=== PATIENT | female | born 1955 | race Caucasian/White ===

== ENCOUNTER → 2017-05-29 | Outpatient (CLI) | payer MEDICARE, MEDICAID ==
[~2017-05-29] MED LIST: ACLI400A2 INH; ALBU0.63 NEB; ALBU18HF INH; ALBUTEROL 0.083% NEB INH; ASPI-496 PO; BECL8.7A6 INH; BUDE10.2 INH; CITA10TA4 PO; DIAZ5TAB PO; DOXY100T PO; DULO30CA2 PO; FLUT1AER INH; FURO20TA3 PO; GABA-827 PO; GUAI600T80 PO; HYDR-3245 PO; KETO10TA PO; LACT1CAP35 PO; LEVO500T47 PO; MAGNESIUM PO; METH4TAB2 PO; METH750T87 PO; MULT-658 PO; NAPR-850 PO; NICO1PAT13 TD; NICO1PAT16 TD; OMEP40CA6 PO; OXYC-302 PO; OXYC1TAB7 PO; PRED-402 PO; PRED10TA PO; SENN1TAB67 PO; TEMA30CA PO; TERB250T3 PO
== END | disposition home or self-care (01) ==
LOC: CFH 14:15
PROVIDERS: ATTEND Nurse Practitioner
DX: J84.10 Pulmonary fibrosis, unspecified (principal); J98.11 Atelectasis; R91.1 Solitary pulmonary nodule
CPT/HCPCS: 71250

== ENCOUNTER → 2018-03-13 | Outpatient (CLI) | payer OTHER, MEDICAID ==
[~2018-03-13] MED LIST changes: +NICO-486 TD; +NICO-487 TD; -NICO1PAT13 TD; -NICO1PAT16 TD
== END | disposition home or self-care (01) ==
LOC: CFH 10:19
PROVIDERS: ATTEND Nurse Practitioner
DX: Z12.31 Encounter for screening mammogram for malignant neoplasm of breast (principal)
CPT/HCPCS: 77067

== ENCOUNTER 2018-07-24 08:29 | Day surgery (SDC) | payer OTHER, MEDICAID ==
[2018-07-21 11:51] VITALS: BP 112/80
[2018-07-21 12:51] LABS: CHLORIDE 101 mmol/L (98-107)
[2018-07-21 13:07] LABS: ALANINE AMINOTRANSFERASE 19 U/L (12-78); ALBUMIN 3.9 g/dL (3.4-5.0); ALKALINE PHOSPHATASE 132 U/L (45-117); ANION GAP 6 mmol/L (5-15); BILIRUBIN,TOTAL 0.4 mg/dL (0.2-1.0); CALCIUM 9.2 mg/dL (8.5-10.1); CREATININE 0.69 mg/dL (0.55-1.02); TOTAL PROTEIN 7.3 g/dL (6.4-8.2)
[2018-07-21 15:16] LABS: BASOPHILS # (AUTO) 0.07 x10^3/uL (0-0.1); BASOPHILS % (AUTO) 1 % (0-1); EOSINOPHILS # (AUTO) 0.09 x10^3/uL (0-0.4); EOSINOPHILS % (AUTO) 2 % (1-7); LYMPHOCYTES # (AUTO) 1.82 x10^3/uL (1-3.4); LYMPHOCYTES % (AUTO) 30 % (22-44); MD NO; MEAN CORPUSCULAR HEMOGLOBIN 31.4 pg (27.0-34.8); MEAN CORPUSCULAR HGB CONC 33.6 g/dL (32.4-35.8); MEAN CORPUSCULAR VOLUME 93.5 fL (80-100); MEAN PLATELET VOLUME 9.8 fL (7.4-10.4); MONOCYTES # (AUTO) 0.45 x10^3/uL (0.2-0.8); MONOCYTES % (AUTO) 7 % (2-9); NEUTROPHILS # (AUTO) 3.59 x10^3/uL (1.8-6.8); NEUTROPHILS % (AUTO) 60 % (42-75); PLATELET COUNT 212 x10^3/uL (130-400); RED BLOOD COUNT 4.25 x10^6/uL (3.82-5.3); RED CELL DISTRIBUTION WIDTH 13.1 % (9.6-15.2)
[~2018-07-24] VITALS: Ht 157.5 cm; Wt 92.7 kg
[~2018-07-24 08:29] MED LIST changes: +ALPR-475 PO; +DOCU250C62 PO; +DOXY100T10 PO; +FLUT1BLS3 IH; +FLUT9.9S NS; +MELO15TA24 PO; +OXYC-432 PO; +PRED20TA PO; +VARE1TAB21 PO; +VENL150C6 PO
[2018-07-24] MEDS ORDERED: LACTATED RINGERS 1,000 ML IV SCH (08:59)
[2018-07-24 09:00] VITALS: BP 112/80
[2018-07-24] MEDS ORDERED: PIPERACILLIN/TAZO/PMX 3.375GM 50 ML IV ONE (09:00)
[2018-07-24] MEDS ORDERED: PROPOFOL 10 MG/ML, 20ML ONE (11:01)
[2018-07-24] MEDS ORDERED: GLYCOPYRROLATE 0.4 MG/2 ML, 2ML ONE ×2 (11:28→12:01)
[2018-07-24] MEDS ORDERED: NEOSTIGMINE 1 MG/ML, 10ML ONE (11:28)
[2018-07-24] MEDS ORDERED: ROCURONIUM 10MG/ML,5ML ONE (11:28)
[2018-07-24] MEDS ORDERED: FENTANYL PF 100 MCG/2ML IV PRN (11:30)
[2018-07-24] MEDS ORDERED: OXYcodone 5 MG/5 ML ORAL.SOL UDC PO PRN (11:30)
[2018-07-24] MEDS ORDERED: ALBUTEROL/IPRATROPIUM 2.5MG/0.5MG, 3 ML NPPB PRN (11:30)
[2018-07-24] MEDS ORDERED: ALBUTEROL SULFATE 2.5 MG/3 ML NPPB PRN (11:30)
[2018-07-24] MEDS ORDERED: ONDANSETRON 2MG/ML, 2ML ONE (11:48)
[2018-07-24] MEDS ORDERED: DEXAMETHASONE 4 MG/ML, 1ML ONE ×2 (11:48)
[2018-07-24] MEDS ORDERED: PHENYLEPHRINE 10 MG/ML ONE (15:23)
== END 2018-07-24 14:20 | disposition home or self-care (01) ==
LOC: OUT 08:29
PROVIDERS: ATTEND Internal Medicine Gastroenterology
DX: K86.9 Disease of pancreas, unspecified (principal); K31.89 Other diseases of stomach and duodenum; K21.9 Gastro-esophageal reflux disease without esophagitis; J44.9 Chronic obstructive pulmonary disease, unspecified; F41.9 Anxiety disorder, unspecified; F32.9 Major depressive disorder, single episode, unspecified; F17.210 Nicotine dependence, cigarettes, uncomplicated; Z99.81 Dependence on supplemental oxygen; G47.33 Obstructive sleep apnea (adult) (pediatric); Z88.1 Allergy status to other antibiotic agents; Z88.8 Allergy status to other drugs, medicaments and biological substances; Z79.82 Long term (current) use of aspirin; Z79.899 Other long term (current) drug therapy; Z91.013 Allergy to seafood; Z87.39 Personal history of other diseases of the musculoskeletal system and connective tissue; Z98.890 Other specified postprocedural states; Z90.49 Acquired absence of other specified parts of digestive tract
CPT/HCPCS: 36415; 43238; 43248; 80053; 85025; 88172; 88173; 88305; 93005; J1100; J2370; J2405; J2543; J2704; J2710; J7120; 88341; 88342

== ENCOUNTER → 2018-08-04 | Outpatient (CLI) | payer OTHER, MEDICAID | END | disposition home or self-care (01) | LOC: PETCFH 13:39 | PROVIDERS: ATTEND Nurse Practitioner Family | DX: R91.8 Other nonspecific abnormal finding of lung field (principal) | CPT/HCPCS: 78815; A9552 ==

== ENCOUNTER → 2018-08-05 | Outpatient (CLI) | payer OTHER, MEDICAID ==
[~2018-08-05] MED LIST changes: +FENTANYL PF 100 MCG/2ML ONE; +GADOBUTROL 10 MMOL/10 ML PFS ONE; +MIDAZOLAM 1 MG/ML, 5ML ONE
== END | disposition home or self-care (01) ==
LOC: RAD 10:08
PROVIDERS: ATTEND Nurse Practitioner Family
DX: I67.82 Cerebral ischemia (principal); C34.90 Malignant neoplasm of unspecified part of unspecified bronchus or lung
CPT/HCPCS: 70553; 99156; 99157; A9585; J2250; J3010

== ENCOUNTER 2018-09-01 08:30 | Day surgery (SDC) | payer OTHER, MEDICAID ==
[~2018-09-01] VITALS: Ht 154.9 cm; Wt 94.0 kg
[~2018-09-01 08:30] MED LIST changes: -FENTANYL PF 100 MCG/2ML ONE; -GADOBUTROL 10 MMOL/10 ML PFS ONE; -MIDAZOLAM 1 MG/ML, 5ML ONE
[2018-09-01] MEDS ORDERED: CEFAZOLIN PMX 1GM/50ML 50 ML IV ONE (09:00)
[2018-09-01] MEDS ORDERED: SODIUM CHLORIDE 0.9% 1,000 ML IV SCH (09:00)
[2018-09-01 09:08] VITALS: BP 120/69
[2018-09-01] MEDS ORDERED: LIDOCAINE-MPF 1%, 5ML ONE (10:39)
[2018-09-01] MEDS ORDERED: FENTANYL PF 100 MCG/2ML ONE (10:49)
[2018-09-01] MEDS ORDERED: FLUMAZENIL 0.1 MG/1 ML, 5ML ONE (10:49)
[2018-09-01] MEDS ORDERED: MIDAZOLAM 1 MG/ML, 5ML ONE ×2 (10:49)
[2018-09-01] MEDS ORDERED: NALOXONE 1 MG/ML, 2ML ONE (10:49)
== END 2018-09-01 13:05 | disposition home or self-care (01) ==
LOC: OUT 08:30
PROVIDERS: ATTEND Internal Medicine Hematology & Oncology
DX: Z45.2 Encounter for adjustment and management of vascular access device (principal); C34.90 Malignant neoplasm of unspecified part of unspecified bronchus or lung; F41.9 Anxiety disorder, unspecified; F32.9 Major depressive disorder, single episode, unspecified; F44.9 Dissociative and conversion disorder, unspecified; Z88.8 Allergy status to other drugs, medicaments and biological substances; Z88.1 Allergy status to other antibiotic agents; Z91.013 Allergy to seafood; Z79.899 Other long term (current) drug therapy; Z87.891 Personal history of nicotine dependence
CPT/HCPCS: 36561; 76937; 77001; 99156; 99157; C1788; J0690; J1642; J2250; J3010; J2310

== ENCOUNTER 2018-10-16 07:16 | Day surgery (SDC) | payer OTHER, MEDICAID ==
[~2018-10-16] VITALS: Ht 157.5 cm; Wt 93.2 kg
[2018-10-16 08:26] VITALS: BP 107/75
[2018-10-16] MEDS ORDERED: METOPROLOL 1 MG/ML, 5ML IV PRN (08:30)
[2018-10-16] MEDS ORDERED: ALBUTEROL/IPRATROPIUM 2.5MG/0.5MG, 3 ML NPPB PRN (08:30)
[2018-10-16] MEDS ORDERED: LABETALOL 5MG/ML, 20ML IV PRN (08:30)
[2018-10-16] MEDS ORDERED: hydrALAzine 20 MG/ML, 1ML IV PRN (08:30)
[2018-10-16] MEDS ORDERED: PLEASE ENTER HEIGHT AND WEIGHT MC SCH ×2 (08:30)
[2018-10-16] MEDS ORDERED: ONDANSETRON 2MG/ML, 2ML IV PRN (08:30)
[2018-10-16] MEDS ORDERED: FENTANYL PF 100 MCG/2ML IV PRN (08:30)
[2018-10-16] MEDS ORDERED: LACTATED RINGERS 1,000 ML IV SCH (08:36)
[2018-10-16] MEDS ORDERED: PROPOFOL 10 MG/ML, 20ML ONE (09:11)
== END 2018-10-16 11:25 | disposition home or self-care (01) ==
LOC: OUT 07:16
PROVIDERS: ATTEND Internal Medicine Gastroenterology
DX: K57.30 Diverticulosis of large intestine without perforation or abscess without bleeding (principal); K64.0 First degree hemorrhoids; J44.9 Chronic obstructive pulmonary disease, unspecified; M19.90 Unspecified osteoarthritis, unspecified site; G47.33 Obstructive sleep apnea (adult) (pediatric); K21.9 Gastro-esophageal reflux disease without esophagitis; Z79.899 Other long term (current) drug therapy; Z85.118 Personal history of other malignant neoplasm of bronchus and lung; Z90.49 Acquired absence of other specified parts of digestive tract
CPT/HCPCS: 45378; J2704; J7120

== ENCOUNTER 2018-10-31 07:18 | Outpatient (CLI) | payer MEDICARE, MEDICAID | END 2018-10-31 23:59 | disposition home or self-care (01) | LOC: ROC 07:18 → EDSTATUS 09-15 14:57 | PROVIDERS: ATTEND Radiology Radiation Oncology | DX: Z02.9 Encounter for administrative examinations, unspecified (principal) ==

== ENCOUNTER → 2018-11-06 | Outpatient (CLI) | payer MEDICARE, MEDICAID | END | disposition home or self-care (01) | LOC: ROC 08:19 | PROVIDERS: ATTEND Nurse Practitioner | DX: C34.12 Malignant neoplasm of upper lobe, left bronchus or lung (principal); J44.9 Chronic obstructive pulmonary disease, unspecified | CPT/HCPCS: 99212; G0463 ==

== ENCOUNTER → 2018-12-17 | Outpatient (CLI) | payer MEDICARE, MEDICAID ==
[~2018-12-17] MED LIST changes: +OMNIPAQUE 350 MG/ML, 100ML BOTTLE ONE
== END | disposition home or self-care (01) ==
LOC: RAD 10:28
PROVIDERS: ATTEND Internal Medicine Hematology & Oncology
DX: K76.89 Other specified diseases of liver (principal); N28.1 Cyst of kidney, acquired; C34.12 Malignant neoplasm of upper lobe, left bronchus or lung; Z87.891 Personal history of nicotine dependence
CPT/HCPCS: 71260; 74160; J1642; Q9967

== ENCOUNTER 2019-01-12 09:23 | Outpatient (CLI) | payer MEDICARE, MEDICAID ==
[~2019-01-12 09:23] MED LIST changes: -OMNIPAQUE 350 MG/ML, 100ML BOTTLE ONE
== END 2019-01-12 23:59 | disposition home or self-care (01) ==
LOC: ROC 09:23
PROVIDERS: ATTEND Radiology Radiation Oncology
DX: C34.12 Malignant neoplasm of upper lobe, left bronchus or lung (principal); Z79.899 Other long term (current) drug therapy
CPT/HCPCS: 99212; G0463

== ENCOUNTER → 2019-03-10 | Outpatient (CLI) | payer MEDICARE, MEDICAID ==
[~2019-03-10] MED LIST changes: +PRIM50TA34 PO
== END | disposition home or self-care (01) ==
LOC: CFH 12:24
PROVIDERS: ATTEND Nurse Practitioner
DX: M50.30 Other cervical disc degeneration, unspecified cervical region (principal); M48.02 Spinal stenosis, cervical region; M46.02 Spinal enthesopathy, cervical region; G95.89 Other specified diseases of spinal cord; M51.34 Other intervertebral disc degeneration, thoracic region; M48.04 Spinal stenosis, thoracic region; M41.84 Other forms of scoliosis, thoracic region; M46.04 Spinal enthesopathy, thoracic region
CPT/HCPCS: 72040; 72072

== ENCOUNTER 2019-03-18 15:00 | Outpatient (CLI) | payer MEDICARE, MEDICAID | END 2019-03-18 23:59 | disposition home or self-care (01) | LOC: CFH 15:00 | PROVIDERS: ATTEND Nurse Practitioner | DX: Z12.31 Encounter for screening mammogram for malignant neoplasm of breast (principal) | CPT/HCPCS: 77067 ==

== ENCOUNTER 2019-04-30 12:03 | Outpatient (CLI) | payer MEDICARE, MEDICAID | END 2019-04-30 23:59 | disposition home or self-care (01) | LOC: RAD 12:03 | PROVIDERS: ATTEND Internal Medicine Hematology & Oncology | DX: S22.049A Unspecified fracture of fourth thoracic vertebra, initial encounter for closed fracture (principal); C34.12 Malignant neoplasm of upper lobe, left bronchus or lung; R91.1 Solitary pulmonary nodule; J44.9 Chronic obstructive pulmonary disease, unspecified; X58.XXXA Exposure to other specified factors, initial encounter; Y93.89 Activity, other specified; Y92.89 Other specified places as the place of occurrence of the external cause; Y99.8 Other external cause status | CPT/HCPCS: 71260; J1642; Q9967 ==

== ENCOUNTER 2019-05-04 08:55 | Outpatient (CLI) | payer MEDICARE, MEDICAID | END 2019-05-04 23:59 | disposition home or self-care (01) | LOC: ROC 08:55 | PROVIDERS: ATTEND Radiology Radiation Oncology | DX: Z08 Encounter for follow-up examination after completed treatment for malignant neoplasm (principal); Z79.899 Other long term (current) drug therapy; Z79.891 Long term (current) use of opiate analgesic; Z88.2 Allergy status to sulfonamides; Z91.041 Radiographic dye allergy status | CPT/HCPCS: 99212; G0463 ==

== ENCOUNTER → 2019-07-15 | Outpatient (CLI) | payer MEDICARE, MEDICAID ==
[~2019-07-15] MED LIST changes: -ACLI400A2 INH; +ACLI400A3 INH; -ALPR-475 PO; +ALPR0.5T7 PO; -DOXY100T10 PO; +DOXY100T23 PO; +OMEP40CA42 PO; -OMEP40CA6 PO; +OXYC-307 PO
== END | disposition home or self-care (01) ==
LOC: RAD 08:31 → EDSTATUS 09:00
PROVIDERS: ATTEND Nurse Practitioner
DX: Z02.9 Encounter for administrative examinations, unspecified (principal)

== ENCOUNTER → 2019-07-16 | Outpatient (CLI) | payer MEDICARE, MEDICAID ==
[~2019-07-16] MED LIST changes: +FENTANYL PF 100 MCG/2ML ONE; +MIDAZOLAM 1 MG/ML, 5ML ONE
== END | disposition home or self-care (01) ==
LOC: RAD 14:00
PROVIDERS: ATTEND Nurse Practitioner
DX: M48.54XA Collapsed vertebra, not elsewhere classified, thoracic region, initial encounter for fracture (principal); J44.9 Chronic obstructive pulmonary disease, unspecified; Z87.891 Personal history of nicotine dependence; Z88.2 Allergy status to sulfonamides; Z91.041 Radiographic dye allergy status; Z91.013 Allergy to seafood; Z99.81 Dependence on supplemental oxygen
CPT/HCPCS: 72146; 99156; 99157; J2250; J3010

== ENCOUNTER 2019-08-04 15:25 | Emergency (ER) | payer MEDICARE, MEDICAID ==
[~2019-08-04] VITALS: Ht 157.5 cm; Wt 79.5 kg
[~2019-08-04 15:25] MED LIST changes: -FENTANYL PF 100 MCG/2ML ONE; -MIDAZOLAM 1 MG/ML, 5ML ONE
--- NOTE | 2019-08-04 15:42 | NUR ---
[facility] / +SOB. PT S/P CHEMO AND RADIATION FOR LUNG CA. "I'M NOW CANCER FREE" PT RECIEVES IMMUNOTHERAPY EVERY 2 WEEKS. PER TNT LINE SUPERVISOREDGE BANDER HAND CAN CAUSE PNUEMONITIS. PT CHANGED INTO GOWN AND ALL MONITORS PLACED. VSS, LUNG SOUNDS GREATLY DIMINISHED POSTERIOR T/O. CALL LIGHT W/I REACH. AWAITING ER PROVIDER EVALUATION
[2019-08-04] MEDS ORDERED: ALBUTEROL/IPRATROPIUM 2.5MG/0.5MG, 3 ML ONE (16:23)
[2019-08-04] MEDS ORDERED: ALBUTEROL/IPRATROPIUM 2.5MG/0.5MG, 3 ML NPPB ONE (16:30)
[2019-08-04 16:48] LABS: BASOPHILS # (AUTO) 0.04 x10^3/uL (0-0.1); BASOPHILS % (AUTO) 1 % (0-1); EOSINOPHILS # (AUTO) 0.05 x10^3/uL (0-0.4); EOSINOPHILS % (AUTO) 1 % (1-7); LYMPHOCYTES # (AUTO) 0.71 x10^3/uL (1-3.4); LYMPHOCYTES % (AUTO) 14 % (22-44); MD NO; MEAN CORPUSCULAR HEMOGLOBIN 32.6 pg (27.0-34.8); MEAN CORPUSCULAR HGB CONC 33.8 g/dL (32.4-35.8); MEAN CORPUSCULAR VOLUME 96.4 fL (80-100); MEAN PLATELET VOLUME 8.2 fL (7.4-10.4); MONOCYTES # (AUTO) 0.34 x10^3/uL (0.2-0.8); MONOCYTES % (AUTO) 7 % (2-9); NEUTROPHILS # (AUTO) 3.78 x10^3/uL (1.8-6.8); NEUTROPHILS % (AUTO) 77 % (42-75); PLATELET COUNT 178 x10^3/uL (130-400); RED BLOOD COUNT 3.75 x10^6/uL (3.82-5.3); RED CELL DISTRIBUTION WIDTH 13.5 % (9.6-15.2)
[2019-08-04 16:56] LABS: ALBUMIN 3.3 g/dL (3.4-5.0); ANION GAP 3 mmol/L (5-15); CHLORIDE 93 mmol/L (98-107); CREATININE 0.38 mg/dL (0.55-1.02)
--- NOTE | 2019-08-04 18:35 | NUR ---
RT PAGE TO DISCUSS PT ABG AND PLAN FOR ADMIT. BIPAP VS HIGH FLOW
[2019-08-04 19:43] VITALS: BP 121/72
== END 2019-08-04 19:46 | disposition home or self-care (01) ==
LOC: ED 19:15
DX: J43.9 Emphysema, unspecified (principal); I10 Essential (primary) hypertension; Z90.49 Acquired absence of other specified parts of digestive tract; F17.200 Nicotine dependence, unspecified, uncomplicated; Z85.118 Personal history of other malignant neoplasm of bronchus and lung
CPT/HCPCS: 36415; 36600; 71046; 80048; 82040; 82803; 85025; 94640; 99284; J7620

== ENCOUNTER 2019-12-03 15:54 | Emergency (ER) | payer MEDICARE, MEDICAID ==
[~2019-12-03] VITALS: Ht 157.5 cm; Wt 70.4 kg
[~2019-12-03 15:54] MED LIST changes: +LEVO750T26 PO
--- NOTE | 2019-12-03 16:02 | NUR ---
PT TO ROOM 9 PER NITIN. PT WAS AT HOME, AND NOTICED HER PULSE OX SHOWED HER HR AT 120. PT BECAME ANXIOUS, TOOK A XANAX AND IT WAS STILL HIGH, SO SHE TOOK AN OXYCODONE 10MG AND CALLED 911. PT HAS HX OF COPD, WEARS OXYGEN AT HOME ANYWHERE FROM 2-4L NC. PT ALSO CONTINUES TO SMOKE 1/2 PACK PER DAY. PT HAS HISTORY OF CHRONIC BACK PAIN THAT USES OXYCODONE 10MG EVERY 6 HOURS. PT HERE DUE TO BEING ANXIOUS.
--- NOTE | 2019-12-03 16:52 | NUR ---
IN TO ASSESS PATIENT. PT VERY ANXIOUS IN ROOM. KEEPS HOLLERING FOR HELP, BUT WHEN YOU GO TO ROOM, SHE JUST WANTS HER BLANKET ADJUSTED OR HER CHANNEL CHANGED. RN INFORMS PATIENT THAT SHE PERFORMS THESE TASKS AT HOME, SHE CAN PERFORM THEM HERE. RN ENSURES BLANKET IS ON APPROPRIATELY, CALL LIGHT IS WITHIN REACH AND HOB IS ELEVATED TO PATIENT REQUEST.
--- NOTE | 2019-12-03 16:54 | NUR ---
XRAY AT BEDSIDE. EKG PERFORMED UPON ARRIVAL
[2019-12-03] MEDS ORDERED: LORazepam 1MG TABLET PO ONE (17:00)
[2019-12-03 17:03] LABS: BASOPHILS # (AUTO) 0.02 x10^3/uL (0-0.1); BASOPHILS % (AUTO) 1 % (0-1); EOSINOPHILS # (AUTO) 0.15 x10^3/uL (0-0.4); EOSINOPHILS % (AUTO) 4 % (1-7); LYMPHOCYTES # (AUTO) 0.83 x10^3/uL (1-3.4); LYMPHOCYTES % (AUTO) 19 % (22-44); MD NO; MEAN CORPUSCULAR HEMOGLOBIN 31.4 pg (27.0-34.8); MEAN CORPUSCULAR VOLUME 95.2 fL (80-100); MEAN PLATELET VOLUME 8.5 fL (7.4-10.4); MONOCYTES # (AUTO) 0.34 x10^3/uL (0.2-0.8); MONOCYTES % (AUTO) 8 % (2-9); NEUTROPHILS # (AUTO) 2.96 x10^3/uL (1.8-6.8); NEUTROPHILS % (AUTO) 69 % (42-75); PLATELET COUNT 217 x10^3/uL (130-400); RED BLOOD COUNT 3.88 x10^6/uL (3.82-5.3); RED CELL DISTRIBUTION WIDTH 15.7 % (9.6-15.2)
[2019-12-03 17:12] LABS: ALBUMIN 3.5 g/dL (3.4-5.0); ANION GAP 5 mmol/L (5-15); CALCIUM 9.8 mg/dL (8.5-10.1); CHLORIDE 97 mmol/L (98-107); CREATININE 0.32 mg/dL (0.55-1.02)
[2019-12-03 17:15] LABS: TROPONIN I < 0.015 ng/mL (0.000-0.045)
[2019-12-03] MEDS ORDERED: LORazepam 1MG TABLET ONE (17:22)
--- NOTE | 2019-12-03 17:35 | NUR ---
PT UP TO BSC, PASSES GAS. PT C/O PAIN. RN INFORMS PATIENT THAT ORDER CAN BE PLACED FOR MOTRIN, PT STATES "THAT WON'T DO ANYTHING", RN INFORMED PATIENT THAT SHE JUST HAD 2MG ATIVAN AND TOOK HER OXYCODONE AT 2PM AT HOME. PT AGREED, BUT C/O CHRONIC BACK PAIN. WILL CONTINUE TO MONITOR.
--- NOTE | 2019-12-03 18:40 | NUR ---
PT RESTING IN BED. HR 100.
--- NOTE | 2019-12-03 19:15 | NUR ---
PT ATTEMPTING TO GET TRANSPORTATION HOME, AND HAVE SOMEONE BRING HER OXYGEN FOR TRANSPORT.
--- NOTE | 2019-12-03 20:14 | NUR ---
PT YELLING IN HALLWAY FOR HELP. PT NEEDS ASSISTANCE TO GET TO COMMODE TO PASS GAS. RN INFORMS PATIENT THAT SHE NEEDS TO DO THIS HERSELF SHE LIVES ALONE. IF SHE CAN NOT SHE MAY NEED TO GO TO ASSISTED LIVING.
--- NOTE | 2019-12-03 20:26 | NUR ---
PT ASKING TO GO TO WAITING ROOM ON HOSPITAL OXYGEN TANK UNTIL HER RIDE COMES. RN INQUIRES TO HOW LONG IT WILL BE BEFORE HER RIDE ARRIVES. PT STATES "ONLY 5-10MINUTES". RN INFORMS PATIENT THAT SHE WILL NEED TO WAIT BACK HERE UNTIL SOMEONE ARRIVES WITH HER OXYGEN SET UP. PT INFORMS RN THAT THEY HAVE LET HER GO HOME WITH THE HOSPITAL TANKS BEFORE, AND SHE HAS ONE ON HER PORCH. RN INFORMS PATIENT THAT SHE NEEDS TO HAVE SOMEONE BRING HER SET UP. PATIENT IS TALKING TO SOMEONE ON HER PHONE USING THE SPEAKER SET UP VERY LOUDLY, AND SHE IS TRYING TO GET SOMEONE TO LET HER OUT FRONT SO SHE CAN GO OUTSIDE AND SMOKE. RN INFORMS PATIENT THAT SHE MOST DEFINATELY CAN NOT GO OUTSIDE TO SMOKE, SO SHE MUST STAY IN THE ROOM UNTIL HER RIDE IS HERE.
--- NOTE | 2019-12-03 20:49 | NUR ---
PT INFORMS RN THAT RIDE IS COMING. RN ASKS PATIENT TO LET STAFF KNOW WHEN RIDE ARRIVES.
--- NOTE | 2019-12-03 21:36 | NUR ---
EX IN ER WAITING ROOM WITH O2 TANK. RN RETREIVES TANK AND GETS PATIENT READY FOR DISCHARGE. RN WHEELS PATIENT OUT OF ED TO TRUCK IN ROUND ABOUT. PT STABLE UPON DISCHARGE.
[2019-12-03 21:39] VITALS: BP 122/78
== END 2019-12-03 21:42 | disposition home or self-care (01) ==
LOC: ED 19:00
DX: F41.1 Generalized anxiety disorder (principal); R00.0 Tachycardia, unspecified; I10 Essential (primary) hypertension; J44.9 Chronic obstructive pulmonary disease, unspecified
CPT/HCPCS: 36415; 71045; 80048; 82040; 84484; 85025; 93005; 99285

== ENCOUNTER 2019-12-17 14:39 | Emergency (ER) | payer MEDICARE, MEDICAID ==
[~2019-12-17] VITALS: Ht 157.5 cm; Wt 69.0 kg
[2019-12-17] MEDS ORDERED: OXYcodone/APAP 5/325MG TABLET ONE (14:54)
[2019-12-17] MEDS ORDERED: SODIUM CHLORIDE FLUSH 10ML SYR IVF ONE (15:00)
[2019-12-17] MEDS ORDERED: OXYcodone/APAP 5/325MG TABLET PO ONE (15:00)
[2019-12-17] MEDS ORDERED: PLEASE ENTER HEIGHT AND WEIGHT MC SCH (15:00)
[2019-12-17] MEDS ORDERED: MAGNESIUM SULFATE PMX 2GM/50ML 50 ML IVPB ONE (15:00)
--- NOTE | 2019-12-17 15:02 | NUR ---
PT STATES SHE FEELS MUCH BETTER. HAD TAKEN 2 PUFFS OF HOME RX INAHLER. WAS GIVEN 1 ALBUTERAL AND 1 DUONEB BREATHING TREATMENT PRIOR TO ARRIVAL. ALSO GIVEN 125MG OF SOLUMEDROL. PT MEDICATED PER NOV. RIGHTS VERIFIED PRIOR. 3P'S ADDRESSED. POC DISCUSSED.
[2019-12-17 15:11] LABS: BASOPHILS # (AUTO) 0.04 x10^3/uL (0-0.1); BASOPHILS % (AUTO) 1 % (0-1); EOSINOPHILS # (AUTO) 0.08 x10^3/uL (0-0.4); EOSINOPHILS % (AUTO) 1 % (1-7); LYMPHOCYTES # (AUTO) 1.19 x10^3/uL (1-3.4); LYMPHOCYTES % (AUTO) 18 % (22-44); MD NO; MEAN CORPUSCULAR HEMOGLOBIN 31.4 pg (27.0-34.8); MEAN CORPUSCULAR HGB CONC 32.3 g/dL (32.4-35.8); MEAN CORPUSCULAR VOLUME 97.4 fL (80-100); MONOCYTES # (AUTO) 0.45 x10^3/uL (0.2-0.8); MONOCYTES % (AUTO) 7 % (2-9); NEUTROPHILS # (AUTO) 4.85 x10^3/uL (1.8-6.8); NEUTROPHILS % (AUTO) 74 % (42-75); PLATELET COUNT 209 x10^3/uL (130-400); RED BLOOD COUNT 4.15 x10^6/uL (3.82-5.3); RED CELL DISTRIBUTION WIDTH 15.4 % (9.6-15.2)
[2019-12-17 15:23] LABS: ALBUMIN 3.4 g/dL (3.4-5.0); ANION GAP 4 mmol/L (5-15); CALCIUM 9.3 mg/dL (8.5-10.1); CHLORIDE 94 mmol/L (98-107)
[2019-12-17 15:27] LABS: TROPONIN I < 0.015 ng/mL (0.000-0.045)
--- NOTE | 2019-12-17 15:27 | NUR ---
PT RESTING COMFORTABELY. IV INFUSION STARTED PER NOV. RIGHTS VERIFIED PRIOR.
--- NOTE | 2019-12-17 16:25 | NUR ---
DISCUSSED POC WITH PATIENT. TO BE D/C. SHE WILL ATTEMPT TO GET RIDE.
[2019-12-17 16:45] VITALS: BP 101/75
--- NOTE | 2019-12-17 17:02 | NUR ---
PATIENT GIVEN D/C PAPERWORK. PT VERBALIZED UNDERSTANDING. PT TAKEN OUT BY W/C.
== END 2019-12-17 17:04 | disposition home or self-care (01) ==
LOC: ED 15:17
DX: J44.1 Chronic obstructive pulmonary disease with (acute) exacerbation (principal); I10 Essential (primary) hypertension; F17.200 Nicotine dependence, unspecified, uncomplicated; Z04.9 Encounter for examination and observation for unspecified reason
CPT/HCPCS: 36415; 71045; 80048; 82040; 83605; 83880; 84484; 85025; 87040; 93005; 96361; 96365; 99285; J3475

== ENCOUNTER 2019-12-24 12:03 | Emergency (ER) | payer MEDICARE, MEDICAID ==
[~2019-12-24] VITALS: Ht 157.5 cm; Wt 70.0 kg
[2019-12-24 12:18] VITALS: BP 117/77
--- NOTE | 2019-12-24 12:37 | NUR ---
PT BEING DISCHARGED HOME IN A STABLE CONDITION. RN INFORMED THROUGHPUT THAT [employer] IS GOING TO BE NEEDED TO RETURN PT HOME. THROUGHPUT RN TO SET UP RIDE. DC INSTRUCTIONS WERE DISCUSSED WITH PT. PT VERBALIZED UNDERSTANDING. RN HELPED PT GET DRESSED. AWAITING TIME FOR TRANSPORT.
== END 2019-12-24 13:26 | disposition home or self-care (01) ==
LOC: ED 12:40
DX: R06.00 Dyspnea, unspecified (principal); J43.9 Emphysema, unspecified; I10 Essential (primary) hypertension; Z85.118 Personal history of other malignant neoplasm of bronchus and lung
CPT/HCPCS: 99283

== ENCOUNTER 2019-12-24 18:02 | Emergency (ER) | payer MEDICARE, MEDICAID ==
[~2019-12-24] VITALS: Ht 157.5 cm; Wt 70.0 kg
[2019-12-24 18:08] VITALS: BP 123/85
--- NOTE | 2019-12-24 18:42 | NUR ---
Patient into room, no complaints once provider went to bedside for assessment. Patient was here earlier, discharged with medications. Patient was discharged and was transported using [employer]. Patient has spoken with all family members, ex reports being unable to provider transportation, taxi cab services are unavailable due to pandemic lockdown. Patient attempting to call further family members.
== END 2019-12-24 19:10 | disposition home or self-care (01) ==
LOC: ED 19:08
DX: R00.1 Bradycardia, unspecified (principal); J44.9 Chronic obstructive pulmonary disease, unspecified; I10 Essential (primary) hypertension; Z90.49 Acquired absence of other specified parts of digestive tract; Z85.118 Personal history of other malignant neoplasm of bronchus and lung; Z88.2 Allergy status to sulfonamides; Z88.6 Allergy status to analgesic agent; Z91.041 Radiographic dye allergy status
CPT/HCPCS: 99283

== ENCOUNTER → 2020-06-22 | Outpatient (CLI) | payer MEDICARE, MEDICAID ==
[~2020-06-22] MED LIST changes: +ATEN25TA PO; +AZIT500T10 PO; +DOCU250C16 PO; -DOCU250C62 PO; +OMNIPAQUE 350 MG/ML, 100ML BOTTLE ONE; -OXYC-432 PO; +OXYC1TAB18 PO; +SODI1TAB PO
[2020-06-22 12:27] LABS: CREATININE 0.54 mg/dL (0.55-1.02)
== END | disposition home or self-care (01) ==
LOC: RAD 11:36
PROVIDERS: ATTEND Internal Medicine Hematology & Oncology
DX: S22.040A Wedge compression fracture of fourth thoracic vertebra, initial encounter for closed fracture (principal); C34.12 Malignant neoplasm of upper lobe, left bronchus or lung; J98.11 Atelectasis; J84.10 Pulmonary fibrosis, unspecified; K76.89 Other specified diseases of liver; N28.1 Cyst of kidney, acquired; S22.050A Wedge compression fracture of T5-T6 vertebra, initial encounter for closed fracture; X58.XXXA Exposure to other specified factors, initial encounter; Y93.89 Activity, other specified; Y92.89 Other specified places as the place of occurrence of the external cause; Y99.8 Other external cause status
CPT/HCPCS: 36415; 71260; 74177; 78306; 82565; A9503; Q9967

== ENCOUNTER 2020-07-21 17:44 | Emergency (ER) | payer MEDICARE, MEDICAID ==
[~2020-07-21] VITALS: Ht 157.5 cm; Wt 58.0 kg
[~2020-07-21 17:44] MED LIST changes: -OMNIPAQUE 350 MG/ML, 100ML BOTTLE ONE
--- NOTE | 2020-07-21 17:55 | NUR ---
PT BIB EMS FOR WORSENIG SOB, PT STATES SHE FEELS TIGHT AND SOB HAS NOT GOTTEN BETTER. PT ON 4L O2 BASELINE. PT NOT IN RESP DISTRESS. DENIES CP, GI N/V. EKG IN PROCESS, PT MONITORED. NO INTERVENTIONS BY [facility].
[2020-07-21] MEDS ORDERED: OXYcodone/APAP 10/325MG TABLET PO ONE (19:30)
--- NOTE | 2020-07-21 19:40 | NUR ---
REPORT FROM Rodríguez AT [facility], ASSUME CARE OF PT AT THIS TIME. NO ERP ORDERS AT THIS TIME. PT AWAKE, NAD, ON ALL ROOM MONITORING.
[2020-07-21] MEDS ORDERED: OXYcodone/APAP 10/325MG TABLET ONE (19:42)
[2020-07-21 20:22] LABS: BASOPHILS % (AUTO) 1 % (0-1); EOSINOPHILS % (AUTO) 0 % (1-7); LYMPHOCYTES % (AUTO) 16 % (22-44); MEAN CORPUSCULAR HEMOGLOBIN 31.5 pg (27.0-34.8); MEAN CORPUSCULAR HGB CONC 32.8 g/dL (32.4-35.8); MEAN PLATELET VOLUME 8.2 fL (7.4-10.4); MONOCYTES % (AUTO) 3 % (2-9); NEUTROPHILS % (AUTO) 80 % (42-75); PLATELET COUNT 169 x10^3/uL (130-400); RED BLOOD COUNT 3.86 x10^6/uL (3.82-5.3); RED CELL DISTRIBUTION WIDTH 12.8 % (9.6-15.2)
[2020-07-21 20:34] LABS: ALBUMIN 3.7 g/dL (3.4-5.0); ANION GAP 8 mmol/L (5-15); CALCIUM 8.8 mg/dL (8.5-10.1); CHLORIDE 86 mmol/L (98-107)
[2020-07-21 20:40] LABS: ALANINE AMINOTRANSFERASE 14 U/L (12-78); ALKALINE PHOSPHATASE 93 U/L (45-117); BILIRUBIN,TOTAL 0.4 mg/dL (0.2-1.0); CREATININE 0.51 mg/dL (0.55-1.02); TOTAL PROTEIN 6.8 g/dL (6.4-8.2); TROPONIN I < 0.015 ng/mL (0.000-0.045)
[2020-07-21 21:00] VITALS: BP 126/84
--- NOTE | 2020-07-21 21:00 | NUR ---
PT TO BR VIA WC WITH SBA. VSS UPDATED IN COMPUTER. REPORT TO [facility], TRANSFER OF CARE AT THIS TIME.
[2020-07-21 21:16] LABS: MD SCAN
--- NOTE | 2020-07-21 21:20 | NUR ---
RECEIVED REPORT FROM MARTITA GERARD. ASSUMING CARE AT THIS TIME. ALL RESULTS ARE BACK AT THIS TIME. CHART UP FOR RECHECK.
== END 2020-07-21 22:17 | disposition home or self-care (01) ==
LOC: ED 21:34
DX: J42 Unspecified chronic bronchitis (principal); E87.1 Hypo-osmolality and hyponatremia; R06.00 Dyspnea, unspecified; R07.89 Other chest pain; R06.02 Shortness of breath; I10 Essential (primary) hypertension; F17.210 Nicotine dependence, cigarettes, uncomplicated
CPT/HCPCS: 36415; 71045; 80053; 83880; 84484; 85025; 93005; 99285; 99406

== ENCOUNTER 2020-07-28 13:18 | Emergency (ER) | payer MEDICARE, MEDICAID ==
[~2020-07-28] VITALS: Ht 157.5 cm; Wt 60.0 kg
[2020-07-28] MEDS ORDERED: PHENAZOPYRIDINE 200 MG TABLET PO ONE (14:00)
[2020-07-28 14:05] LABS: BASOPHILS % (AUTO) 1 % (0-1); EOSINOPHILS % (AUTO) 3 % (1-7); LYMPHOCYTES % (AUTO) 15 % (22-44); MEAN CORPUSCULAR HEMOGLOBIN 31.7 pg (27.0-34.8); MEAN CORPUSCULAR HGB CONC 32.9 g/dL (32.4-35.8); MEAN PLATELET VOLUME 7.7 fL (7.4-10.4); MONOCYTES % (AUTO) 8 % (2-9); NEUTROPHILS % (AUTO) 74 % (42-75); PLATELET COUNT 210 x10^3/uL (130-400); RED BLOOD COUNT 4.08 x10^6/uL (3.82-5.3); RED CELL DISTRIBUTION WIDTH 13.4 % (9.6-15.2)
[2020-07-28 14:12] LABS: MD NO
[2020-07-28 14:14] LABS: ALBUMIN 3.7 g/dL (3.4-5.0); CHLORIDE 95 mmol/L (98-107)
[2020-07-28 14:21] LABS: ALANINE AMINOTRANSFERASE 12 U/L (12-78); ALKALINE PHOSPHATASE 90 U/L (45-117); BILIRUBIN,TOTAL 0.3 mg/dL (0.2-1.0); CREATININE 0.49 mg/dL (0.55-1.02); TOTAL PROTEIN 6.8 g/dL (6.4-8.2)
[2020-07-28 14:31] LABS: ANION GAP 4 mmol/L (5-15)
--- NOTE | 2020-07-28 15:53 | NUR ---
TASK RN: URINE COLLECTED AND SENT TO LAB.
[2020-07-28 16:25] LABS: MICROSCOPIC AUTO
--- NOTE | 2020-07-28 16:53 | NUR ---
FREIGHT FORWARDER: PT CALLED FOR ROOM, NO ANSWER
--- NOTE | 2020-07-28 17:15 | NUR ---
MANAGER SHAREPOINT: CALLED FOR ROOM, NO ANSWER
--- NOTE | 2020-07-28 17:45 | NUR ---
INSTRUMENT AND CONTROL TECHNICIAN; PT CALLED FOR ROOM, NO ANSWER
--- NOTE | 2020-07-28 18:42 | NUR ---
COPYRIGHT EXPERT: PER FAMILY, PT IN LOBBY, HAD NOT LEFT
[2020-07-28] MEDS ORDERED: PHENAZOPYRIDINE 200 MG TABLET ONE (18:52)
--- NOTE | 2020-07-28 18:55 | NUR ---
PATIENT WHEELED BACK FROM LOBBY WITH CHIEF C/O URINARY FREQUENCY. PATIENT STATES SHE HAS BEEN PEEING ALOT MORE SINCE NOVEMBER. PATIENT HAS HAD DIFFICULTY MAKING IT TO THE BATHROOM. NO SIGNS OF ACUTE DISTRESS, WARM BLANKET PROVIDED, CONNECTED TO VITALS MACHINE, CALL LIGHT WITHIN REACH.
[2020-07-28] MEDS ORDERED: OXYcodone/APAP 10/325MG TABLET PO ONE (19:30)
[2020-07-28] MEDS ORDERED: OXYcodone/APAP 10/325MG TABLET ONE (20:09)
[2020-07-28 20:13] VITALS: BP 140/73
--- NOTE | 2020-07-28 20:14 | NUR ---
PATIENT MEDICATED PER eMAR, BSC PROVIDED FOR PATIENT TO URINATE. PRE-VOID BLADDER SCAN SHOWS 514 mLS.
--- NOTE | 2020-07-28 20:31 | NUR ---
PATIENT URINATED IN BSC, POST-VOID RESIDUAL SHOWS 0 mLS.
--- NOTE | 2020-07-28 20:53 | NUR ---
Patient given discharge instructions and they have confirmed that they understand the instructions. Patient in stable condition, wheeled to son's private vehicle.
== END 2020-07-28 20:54 | disposition home or self-care (01) ==
LOC: ED 19:10
DX: R30.0 Dysuria (principal); R39.15 Urgency of urination; I10 Essential (primary) hypertension; J45.909 Unspecified asthma, uncomplicated; Z90.49 Acquired absence of other specified parts of digestive tract; Z85.118 Personal history of other malignant neoplasm of bronchus and lung
CPT/HCPCS: 36415; 80053; 81001; 85025; 99284

== ENCOUNTER 2020-12-21 19:13 | Emergency (ER) | payer MEDICARE, MEDICAID ==
[~2020-12-21] VITALS: Ht 157.5 cm; Wt 56.0 kg
[~2020-12-21 19:13] MED LIST changes: -HYDR-3245 PO; +HYDR1TAB53 PO; -NICO-487 TD; +NICO-587 TD; -OXYC-302 PO; -OXYC-307 PO; +OXYC-380 PO; +OXYC1TAB14 PO; +VENL75TA PO
--- NOTE | 2020-12-21 19:52 | NUR ---
BIB [facility]. SOB X 2 DAYS AND WORSE TODAY. PT WEARS 4 L NC ALL THE TIME. HX COPD. 2 DUO NEBS IN ROUTE PER EMS WITH SOME RELIEF. PT ATTACHED TO ALL MONITORS. CALL LIGHT WITHIN REACH, PT STATES SHE URINATES FREQUENTLY. ALSO C/O LOWER BACK PAIN THAT IS CHRONIC. PT MEDICATED FOR BACK PAIN PER [facility].
[2020-12-21] MEDS ORDERED: OXYcodone/APAP 10/325MG TABLET ONE (19:56)
[2020-12-21] MEDS ORDERED: OXYcodone/APAP 10/325MG TABLET PO ONE (20:00)
--- NOTE | 2020-12-21 20:08 | NUR ---
PT REPORTS BETTER BREAHTING AFTER BREATHING TREATMENTS SHE RECIEVED FROM [facility]. PT SPEAKING IN COMPLETE SENTENCES. NO ACUTE DISTRESS.
[2020-12-21 20:43] VITALS: BP 129/82
--- NOTE | 2020-12-21 20:44 | NUR ---
PT REPORTS IMPROVED BACK PAIN AFTER PERCOCET
== END 2020-12-21 20:49 | disposition home or self-care (01) ==
LOC: ED 20:49
DX: J44.1 Chronic obstructive pulmonary disease with (acute) exacerbation (principal); R06.00 Dyspnea, unspecified; R00.0 Tachycardia, unspecified; I10 Essential (primary) hypertension; J44.9 Chronic obstructive pulmonary disease, unspecified; Z90.49 Acquired absence of other specified parts of digestive tract; F17.200 Nicotine dependence, unspecified, uncomplicated
CPT/HCPCS: 71045; 93005; 99283; J7512

== ENCOUNTER 2021-01-03 06:51 | Emergency (ER) | payer MEDICARE, MEDICAID ==
[~2021-01-03] VITALS: Ht 157.5 cm; Wt 57.0 kg
--- NOTE | 2021-01-03 07:06 | NUR ---
PT BIB EMS FOR SHAKINESS AND TIGHT FEELING IN UPPER ABD. PT DENIES SOB, N/V, OR DIARRHEA. PT STATES THE LAST TIME SHE FELT LIKE THIS SHE HAD AN ISSUE WITH HER SODIUM AND WAS ADMITTED TO THE HOSPITAL.
[2021-01-03] MEDS ORDERED: ONDANSETRON 2MG/ML, 2ML IVPush ONE (07:30)
[2021-01-03] MEDS ORDERED: MORPHINE SULFATE 4 MG/ML, 1ML IVPush PRN (07:30)
[2021-01-03 07:54] LABS: BASOPHILS % (AUTO) 1 % (0-1); EOSINOPHILS % (AUTO) 2 % (1-7); LYMPHOCYTES % (AUTO) 12 % (22-44); MEAN CORPUSCULAR HEMOGLOBIN 32.5 pg (27.0-34.8); MEAN CORPUSCULAR HGB CONC 33.4 g/dL (32.4-35.8); MEAN PLATELET VOLUME 7.2 fL (7.4-10.4); MONOCYTES % (AUTO) 8 % (2-9); NEUTROPHILS % (AUTO) 77 % (42-75); PLATELET COUNT 181 x10^3/uL (130-400); RED BLOOD COUNT 3.92 x10^6/uL (3.82-5.3); RED CELL DISTRIBUTION WIDTH 13.7 % (9.6-15.2)
[2021-01-03 07:55] LABS: MD NO
[2021-01-03 08:02] LABS: ALANINE AMINOTRANSFERASE 19 U/L (12-78); ALBUMIN 3.6 g/dL (3.4-5.0); ANION GAP 3 mmol/L (5-15); CALCIUM 9.1 mg/dL (8.5-10.1); CHLORIDE 97 mmol/L (98-107); CREATININE 0.39 mg/dL (0.55-1.02)
[2021-01-03 08:04] LABS: ALKALINE PHOSPHATASE 95 U/L (45-117); BILIRUBIN,TOTAL 0.3 mg/dL (0.2-1.0); TOTAL PROTEIN 6.7 g/dL (6.4-8.2)
[2021-01-03] MEDS ORDERED: MORPHINE SULFATE 4 MG/ML, 1ML ONE (08:11)
[2021-01-03] MEDS ORDERED: ONDANSETRON 2MG/ML, 2ML ONE (08:11)
[2021-01-03 08:26] LABS: MICROSCOPIC INDICATED
--- NOTE | 2021-01-03 09:15 | NUR ---
BREAK RN: PT SITTING ON [employer] CALML[place], WATCHING TV. NADN/VSS. CALL LIGHT WITHIN REACH
--- NOTE | 2021-01-03 09:18 | NUR ---
BREAK RN: AT
--- NOTE | 2021-01-03 09:45 | NUR ---
PT REC'VD DISCHARGE INSTRUCTIONS AND EDUCATION. PT HAD NO FURTHER QUESTIONS.
[2021-01-03 09:48] VITALS: BP 126/71
--- NOTE | 2021-01-03 09:58 | NUR ---
PT ATTEMPTING TO CONTACT SON TO GET A RIDE HOME. NO ANSWER SO FAR. PT ON CONTINOUS O2.
--- NOTE | 2021-01-03 10:20 | NUR ---
PT IN WHEELCHAIR TO DC AREA.
== END 2021-01-03 10:53 | disposition home or self-care (01) ==
LOC: ED 09:59
DX: F19.139 Other psychoactive substance abuse with withdrawal, unspecified (principal); R10.10 Upper abdominal pain, unspecified; M54.5 Low back pain; E87.1 Hypo-osmolality and hyponatremia; R07.89 Other chest pain; J43.9 Emphysema, unspecified; I10 Essential (primary) hypertension; Z90.49 Acquired absence of other specified parts of digestive tract
CPT/HCPCS: 36415; 71045; 80053; 81001; 83690; 85025; 93005; 96374; 96375; 99285; J2270; J2405

== ENCOUNTER 2021-03-09 12:55 | Inpatient (IN) | payer MEDICARE, MEDICAID ==
[~2021-03-09] VITALS: Ht 157.5 cm; Wt 53.6 kg
[~2021-03-09 12:55] MED LIST changes: +METO10TA2 PO; -OMEP40CA42 PO; +OMEP40CA8 PO
--- NOTE | 2021-03-09 13:34 | NUR ---
REPORT FROM MOUSTAPHA HAIRSTON FOR TRANSFER OF PATIENT CARE.
--- NOTE | 2021-03-09 13:52 | NUR ---
PATIENT TO IMAGING.
--- NOTE | 2021-03-09 14:47 | NUR ---
ERPA AT BEDSIDE TO DISCUSS POC.
[2021-03-09] MEDS ORDERED: KETOROLAC 30 MG/1 ML ONE (14:55)
[2021-03-09] MEDS ORDERED: OXYcodone/APAP 5/325MG TABLET ONE (14:55)
[2021-03-09] MEDS ORDERED: KETOROLAC 30 MG/1 ML IM ONE (15:00)
[2021-03-09] MEDS ORDERED: OXYcodone/APAP 5/325MG TABLET PO ONE (15:00)
--- NOTE | 2021-03-09 15:03 | NUR ---
PATIENT MEDICATED PER eMAR, CONNECTED TO MONITOR, VSS, NADN, CALL LIGHT WITHIN REACH.
--- NOTE | 2021-03-09 15:43 | NUR ---
ROAD TESTED PATIENT WITH WALKER, PATIENT ABLE TO STAND AND TAKE A COUPLE STEPS, STATES "I'M HAVING TOO MUCH PAIN, I CAN'T." ERPA NOTIFIED.
[2021-03-09] MEDS ORDERED: HYDROmorphone 2 MG/ML, 1ML ONE (16:53)
[2021-03-09] MEDS ORDERED: HYDROmorphone 2 MG/ML, 1ML IM ONE (17:30)
--- NOTE | 2021-03-09 18:50 | NUR ---
REPORT FROM FLORINDA GERARD
[2021-03-09] MEDS ORDERED: METHOCARBAMOL 750 MG TABLET PO ONE (19:00)
[2021-03-09] MEDS ORDERED: METHOCARBAMOL 750 MG TABLET ONE ×2 (19:08→19:10)
--- NOTE | 2021-03-09 19:27 | NUR ---
Report to Sarahy GERARD
--- NOTE | 2021-03-09 19:34 | NUR ---
Hospitalist at bedside to discuss POC
[2021-03-09] MEDS ORDERED: ZOLPIDEM 5MG TABLET PO PRN (20:00)
[2021-03-09] MEDS ORDERED: ENALAPRILAT 1.25 MG/ML, 2ML IVPush PRN (20:00)
[2021-03-09] MEDS ORDERED: ONDANSETRON 2MG/ML, 2ML IVPush PRN (20:00)
[2021-03-09] MEDS ORDERED: ACETAMINOPHEN 325 MG TABLET PO PRN (20:00)
[2021-03-09] MEDS ORDERED: GUAIFENESIN/DM 200-20MG, 10ML UDC PO PRN (20:00)
[2021-03-09 20:16] LABS: BASOPHILS % (AUTO) 1 % (0-1); EOSINOPHILS % (AUTO) 0 % (1-7); LYMPHOCYTES % (AUTO) 16 % (22-44); MEAN CORPUSCULAR HEMOGLOBIN 31.9 pg (27.0-34.8); MEAN CORPUSCULAR HGB CONC 33.6 g/dL (32.4-35.8); MEAN PLATELET VOLUME 7.4 fL (7.4-10.4); MONOCYTES % (AUTO) 11 % (2-9); NEUTROPHILS % (AUTO) 73 % (42-75); PLATELET COUNT 161 x10^3/uL (130-400); RED BLOOD COUNT 3.97 x10^6/uL (3.82-5.3); RED CELL DISTRIBUTION WIDTH 14.7 % (9.6-15.2)
[2021-03-09 20:24] VITALS: BP 126/77
[2021-03-09 20:28] LABS: ANION GAP 8 mmol/L (5-15); CALCIUM 8.9 mg/dL (8.5-10.1); CHLORIDE 97 mmol/L (98-107); CREATININE 0.57 mg/dL (0.55-1.02)
[2021-03-09] MEDS: NICOTINE 14MG/24 HR PATCH.TD24 TD SCH (21:18)
[2021-03-09] MEDS: ENOXAPARIN 40 MG/0.4 ML SQ SCH (21:21)
[2021-03-09] MEDS ORDERED: MELO15TA24 PO (21:37)
[2021-03-09] MEDS ORDERED: TEMA30CA PO (21:37)
[2021-03-09] MEDS ORDERED: OXYB10TA26 PO (21:37)
[2021-03-09] MEDS ORDERED: ALBUTEROL SULFATE 2.5 MG/3 ML NPPB PRN (22:00)
[2021-03-09] MEDS ORDERED: TEMAZEPAM 30 MG CAPSULE PO PRN (22:00)
[2021-03-09] MEDS ORDERED: OMEP20TA9 PO (22:02)
[2021-03-09] MEDS: GABAPENTIN 400 MG CAPSULE PO SCH (22:31)
[2021-03-10 01:00] VITALS: BP 104/67
[2021-03-10] MEDS: OMEPRAZOLE 20 MG CAPSULE.DR PO SCH (05:21)
[2021-03-10] MEDS: ASPIRIN 81 MG TABLET EC PO SCH (05:21)
[2021-03-10 05:28] LABS: BASOPHILS % (AUTO) 1 % (0-1); EOSINOPHILS % (AUTO) 2 % (1-7); LYMPHOCYTES % (AUTO) 24 % (22-44); MEAN CORPUSCULAR HEMOGLOBIN 32.3 pg (27.0-34.8); MEAN CORPUSCULAR HGB CONC 33.6 g/dL (32.4-35.8); MEAN PLATELET VOLUME 7.4 fL (7.4-10.4); MONOCYTES % (AUTO) 12 % (2-9); NEUTROPHILS % (AUTO) 61 % (42-75); PLATELET COUNT 139 x10^3/uL (130-400); RED BLOOD COUNT 3.78 x10^6/uL (3.82-5.3); RED CELL DISTRIBUTION WIDTH 14.5 % (9.6-15.2)
[2021-03-10 05:38] LABS: ANION GAP 9 mmol/L (5-15); CALCIUM 8.9 mg/dL (8.5-10.1); CHLORIDE 94 mmol/L (98-107)
[2021-03-10 06:33] LABS: MICROSCOPIC INDICATED
[2021-03-10 06:48] VITALS: BP 113/75
[2021-03-10] MEDS: DOCUSATE 100 MG CAPSULE PO SCH ×2 (08:32→20:29)
[2021-03-10] MEDS: OXYBUTYNIN CHLORIDE 5 MG TABLET PO SCH ×2 (08:32→20:29)
[2021-03-10] MEDS: GABAPENTIN 400 MG CAPSULE PO SCH ×3 (08:32→21:34)
[2021-03-10] MEDS: VENLAFAXINE 75 MG CAP ER PO SCH ×2 (08:32→08:45)
[2021-03-10] MEDS: MELOXICAM 15 MG TABLET PO SCH (08:32)
[2021-03-10] MEDS: [UNRECOGNIZED DRUG - OTHER] INH SCH (09:00)
[2021-03-10] MEDS ORDERED: SENNA/DOCUSATE TABLET PO SCH (09:00)
[2021-03-10] MEDS ORDERED: SODIUM CHLORIDE 1 GM TABLET PO SCH (09:00)
[2021-03-10 13:47] VITALS: BP 109/75
[2021-03-10] MEDS: POLYETHYLENE GLYCOL 17 GM PACKET NG SCH ×2 (18:17→21:00)
[2021-03-10 18:33] VITALS: BP 104/69
[2021-03-10] MEDS: CYCLOBENZAPRINE 10 MG TABLET PO PRN (20:28)
[2021-03-10] MEDS: NICOTINE 14MG/24 HR PATCH.TD24 TD SCH (20:28)
[2021-03-10] MEDS: ENOXAPARIN 40 MG/0.4 ML SQ SCH (20:28)
[2021-03-10] MEDS: SENNA/DOCUSATE TABLET PO SCH (20:29)
[2021-03-10] MEDS ORDERED: MAGNESIUM SULFATE PMX 2GM/50ML 50 ML IV ONE (21:00)
[2021-03-10] MEDS: BISACODYL 10 MG SUPP PR PRN (21:34)
[2021-03-11 00:36] VITALS: BP 104/72
[2021-03-11 05:34] LABS: CHLORIDE 92 mmol/L (98-107)
[2021-03-11 05:37] LABS: BASOPHILS % (AUTO) 1 % (0-1); EOSINOPHILS % (AUTO) 2 % (1-7); LYMPHOCYTES % (AUTO) 27 % (22-44); MEAN CORPUSCULAR HEMOGLOBIN 32.4 pg (27.0-34.8); MEAN CORPUSCULAR HGB CONC 34.5 g/dL (32.4-35.8); MEAN PLATELET VOLUME 8.1 fL (7.4-10.4); MONOCYTES % (AUTO) 13 % (2-9); NEUTROPHILS % (AUTO) 58 % (42-75); PLATELET COUNT 129 x10^3/uL (130-400); RED BLOOD COUNT 3.81 x10^6/uL (3.82-5.3); RED CELL DISTRIBUTION WIDTH 14.5 % (9.6-15.2)
[2021-03-11 05:40] LABS: ALANINE AMINOTRANSFERASE 15 U/L (12-78); ALBUMIN 2.8 g/dL (3.4-5.0); ALKALINE PHOSPHATASE 95 U/L (45-117); ANION GAP 5 mmol/L (5-15); BILIRUBIN,TOTAL 0.4 mg/dL (0.2-1.0); CALCIUM 8.8 mg/dL (8.5-10.1); CREATININE 0.29 mg/dL (0.55-1.02); TOTAL PROTEIN 5.6 g/dL (6.4-8.2)
[2021-03-11] MEDS: OMEPRAZOLE 20 MG CAPSULE.DR PO SCH (05:55)
[2021-03-11] MEDS: ASPIRIN 81 MG TABLET EC PO SCH (05:55)
[2021-03-11] MEDS ORDERED: LORazepam 2 MG/ML, 1ML IVPush PRN (07:30)
[2021-03-11 08:14] VITALS: BP 111/75
[2021-03-11] MEDS: [UNRECOGNIZED DRUG - OTHER] INH SCH (09:00)
[2021-03-11] MEDS: VENLAFAXINE 75 MG CAP ER PO SCH ×2 (09:00→09:43)
[2021-03-11] MEDS: SENNA/DOCUSATE TABLET PO SCH ×2 (09:43→21:22)
[2021-03-11] MEDS: POLYETHYLENE GLYCOL 17 GM PACKET NG SCH ×3 (09:43→21:23)
[2021-03-11] MEDS: MELOXICAM 15 MG TABLET PO SCH (09:43)
[2021-03-11] MEDS: GABAPENTIN 400 MG CAPSULE PO SCH ×3 (09:43→21:22)
[2021-03-11] MEDS: OXYBUTYNIN CHLORIDE 5 MG TABLET PO SCH ×2 (09:43→21:22)
[2021-03-11] MEDS: SODIUM CHLORIDE 1 GM TABLET PO SCH ×2 (09:43→21:28)
[2021-03-11] MEDS: morphine SULFATE 10 MG/ML, 1ML IVPush PRN ×2 (09:44→13:52)
[2021-03-11] MEDS: DOCUSATE 100 MG CAPSULE PO SCH ×2 (09:44→21:22)
[2021-03-11] MEDS ORDERED: GADOTERATE 10 MMOL/20ML SYR ONE (13:23)
[2021-03-11] MEDS ORDERED: MAGNESIUM CITRATE 300ML ORAL SOL PO ONE (17:00)
[2021-03-11 19:40] VITALS: BP 98/68
[2021-03-11] MEDS: CYCLOBENZAPRINE 10 MG TABLET PO PRN (21:23)
[2021-03-11] MEDS: NICOTINE 14MG/24 HR PATCH.TD24 TD SCH (21:26)
[2021-03-11] MEDS: ENOXAPARIN 40 MG/0.4 ML SQ SCH (21:27)
[2021-03-12 01:38] VITALS: BP 68/41
[2021-03-12 01:47] VITALS: BP 92/47
[2021-03-12 04:37] VITALS: BP 92/61
[2021-03-12] MEDS: OMEPRAZOLE 20 MG CAPSULE.DR PO SCH (05:08)
[2021-03-12] MEDS: ASPIRIN 81 MG TABLET EC PO SCH (05:08)
[2021-03-12 05:17] LABS: ANION GAP 3 mmol/L (5-15); CALCIUM 8.2 mg/dL (8.5-10.1); CHLORIDE 98 mmol/L (98-107)
[2021-03-12 05:19] LABS: CREATININE 0.29 mg/dL (0.55-1.02)
[2021-03-12 06:44] VITALS: BP 99/70
[2021-03-12] MEDS: TAMSULOSIN 0.4 MG CAP.ER.24H PO SCH ×2 (08:58→20:35)
[2021-03-12] MEDS: OXYBUTYNIN CHLORIDE 5 MG TABLET PO SCH ×2 (08:58→20:36)
[2021-03-12] MEDS: MELOXICAM 15 MG TABLET PO SCH (08:59)
[2021-03-12] MEDS: POLYETHYLENE GLYCOL 17 GM PACKET NG SCH ×3 (08:59→20:36)
[2021-03-12] MEDS: DOCUSATE 100 MG CAPSULE PO SCH ×2 (08:59→20:36)
[2021-03-12] MEDS: [UNRECOGNIZED DRUG - OTHER] INH SCH (08:59)
[2021-03-12] MEDS: VENLAFAXINE 75 MG CAP ER PO SCH (08:59)
[2021-03-12] MEDS: GABAPENTIN 400 MG CAPSULE PO SCH ×3 (08:59→20:36)
[2021-03-12] MEDS: SODIUM CHLORIDE 1 GM TABLET PO SCH ×2 (08:59→20:36)
[2021-03-12] MEDS: SENNA/DOCUSATE TABLET PO SCH ×2 (09:00→20:36)
[2021-03-12 12:28] VITALS: BP 96/66
[2021-03-12] MEDS: OXYcodone IR 5MG TABLET PO PRN ×2 (14:29→20:34)
[2021-03-12] MEDS ORDERED: GOLYTELY 4,000ML ORAL.SOL PO ONE (17:00)
[2021-03-12] MEDS: FENTANYL 12 MCG PATCH TD SCH (17:39)
[2021-03-12] MEDS: LIDODERM 5% PATCH TD SCH (17:46)
[2021-03-12 18:59] VITALS: BP 93/70
[2021-03-12] MEDS: NICOTINE 14MG/24 HR PATCH.TD24 TD SCH (20:35)
[2021-03-12] MEDS: ENOXAPARIN 40 MG/0.4 ML SQ SCH (20:35)
[2021-03-12] MEDS: CYCLOBENZAPRINE 10 MG TABLET PO PRN (22:51)
[2021-03-13 00:18] VITALS: BP 97/66
[2021-03-13] MEDS: OXYcodone IR 5MG TABLET PO PRN ×4 (00:37→21:21)
[2021-03-13] MEDS: OMEPRAZOLE 20 MG CAPSULE.DR PO SCH (04:39)
[2021-03-13] MEDS: ASPIRIN 81 MG TABLET EC PO SCH (04:39)
[2021-03-13 05:22] LABS: BASOPHILS % (AUTO) 0 % (0-1); EOSINOPHILS % (AUTO) 1 % (1-7); LYMPHOCYTES % (AUTO) 14 % (22-44); MEAN CORPUSCULAR HEMOGLOBIN 32.4 pg (27.0-34.8); MEAN CORPUSCULAR HGB CONC 33.9 g/dL (32.4-35.8); MEAN PLATELET VOLUME 7.6 fL (7.4-10.4); MONOCYTES % (AUTO) 10 % (2-9); NEUTROPHILS % (AUTO) 76 % (42-75); PLATELET COUNT 128 x10^3/uL (130-400); RED BLOOD COUNT 3.24 x10^6/uL (3.82-5.3); RED CELL DISTRIBUTION WIDTH 14.4 % (9.6-15.2)
[2021-03-13 05:26] LABS: ANION GAP 4 mmol/L (5-15); CALCIUM 7.9 mg/dL (8.5-10.1); CHLORIDE 102 mmol/L (98-107); CREATININE 0.17 mg/dL (0.55-1.02)
[2021-03-13 07:04] VITALS: BP 114/75
[2021-03-13] MEDS ORDERED: POTASSIUM CHLORIDE 40 MEQ in D5%-LACTATED RINGERS 1,000 ML IV ONE (07:30)
[2021-03-13] MEDS: morphine SULFATE 10 MG/ML, 1ML IVPush PRN ×3 (07:55→11:56)
[2021-03-13] MEDS: GABAPENTIN 400 MG CAPSULE PO SCH ×3 (09:00→20:28)
[2021-03-13] MEDS: POLYETHYLENE GLYCOL 17 GM PACKET NG SCH ×3 (09:00→20:20)
[2021-03-13] MEDS: DOCUSATE 100 MG CAPSULE PO SCH ×2 (09:00→20:27)
[2021-03-13] MEDS: SENNA/DOCUSATE TABLET PO SCH ×2 (09:00→20:28)
[2021-03-13] MEDS: VENLAFAXINE 75 MG CAP ER PO SCH (09:00)
[2021-03-13] MEDS: [UNRECOGNIZED DRUG - OTHER] INH SCH (09:00)
[2021-03-13] MEDS ORDERED: PROPOFOL 100 ML ONE (12:27)
[2021-03-13] MEDS ORDERED: ACETAMINOPHEN 325 MG TABLET PO PRN (13:00)
[2021-03-13] MEDS ORDERED: OXYcodone 5 MG/5 ML ORAL.SOL UDC PO PRN (13:00)
[2021-03-13] MEDS: FENTANYL PF 100 MCG/2ML IV PRN ×2 (13:10→13:15)
[2021-03-13] MEDS ORDERED: FENTANYL PF 100 MCG/2ML ONE (13:12)
[2021-03-13] MEDS: MELOXICAM 15 MG TABLET PO SCH (15:04)
[2021-03-13] MEDS: SODIUM CHLORIDE 1 GM TABLET PO SCH ×2 (15:04→20:27)
[2021-03-13] MEDS: TAMSULOSIN 0.4 MG CAP.ER.24H PO SCH ×2 (15:04→20:28)
[2021-03-13] MEDS: OXYBUTYNIN CHLORIDE 5 MG TABLET PO SCH ×2 (15:04→20:28)
[2021-03-13] MEDS: LIDODERM 5% PATCH TD SCH (17:15)
[2021-03-13 17:24] LABS: HCT (SEDRATE) 33.3 % (34.6-47.8)
[2021-03-13 18:37] VITALS: BP 106/61
[2021-03-13] MEDS: ENOXAPARIN 40 MG/0.4 ML SQ SCH (20:28)
[2021-03-13] MEDS: NICOTINE 14MG/24 HR PATCH.TD24 TD SCH (20:29)
[2021-03-13] MEDS: CYCLOBENZAPRINE 10 MG TABLET PO PRN (20:42)
[2021-03-14] MEDS: OXYcodone IR 5MG TABLET PO PRN ×5 (02:03→20:09)
[2021-03-14 02:06] VITALS: BP 120/81
[2021-03-14] MEDS: OMEPRAZOLE 20 MG CAPSULE.DR PO SCH (06:19)
[2021-03-14] MEDS: ASPIRIN 81 MG TABLET EC PO SCH (06:19)
[2021-03-14] MEDS: SODIUM CHLORIDE 1 GM TABLET PO SCH ×2 (08:33→20:53)
[2021-03-14] MEDS: OXYBUTYNIN CHLORIDE 5 MG TABLET PO SCH ×2 (08:33→21:03)
[2021-03-14] MEDS: TAMSULOSIN 0.4 MG CAP.ER.24H PO SCH ×2 (08:33→20:56)
[2021-03-14] MEDS: MELOXICAM 15 MG TABLET PO SCH (08:33)
[2021-03-14] MEDS: SENNA/DOCUSATE TABLET PO SCH ×2 (08:33→20:53)
[2021-03-14] MEDS: GABAPENTIN 400 MG CAPSULE PO SCH ×3 (08:34→20:53)
[2021-03-14] MEDS: DOCUSATE 100 MG CAPSULE PO SCH ×2 (08:34→20:53)
[2021-03-14] MEDS: [UNRECOGNIZED DRUG - OTHER] INH SCH (08:39)
[2021-03-14] MEDS: POLYETHYLENE GLYCOL 17 GM PACKET NG SCH ×3 (08:39→20:55)
[2021-03-14 08:46] VITALS: BP 117/78
[2021-03-14] MEDS: VENLAFAXINE 75 MG CAP ER PO SCH (08:47)
[2021-03-14] MEDS: PANTOPRAZOLE GRAN. PKT 40 MG PO SCH ×2 (10:51→20:57)
[2021-03-14] MEDS: MESALAMINE 400 MG CAPSULE.DR PO SCH ×3 (11:16→20:57)
[2021-03-14 13:08] VITALS: BP 124/78
[2021-03-14 14:43] LABS: ANION GAP 4 mmol/L (5-15); CALCIUM 8.3 mg/dL (8.5-10.1); CHLORIDE 99 mmol/L (98-107)
[2021-03-14 14:44] LABS: CREATININE 0.37 mg/dL (0.55-1.02)
[2021-03-14] MEDS: LIDODERM 5% PATCH TD SCH (17:52)
[2021-03-14 18:53] VITALS: BP 116/75
[2021-03-14] MEDS: NICOTINE 14MG/24 HR PATCH.TD24 TD SCH (20:55)
[2021-03-14] MEDS: ENOXAPARIN 40 MG/0.4 ML SQ SCH (20:57)
[2021-03-15] MEDS: OXYcodone IR 5MG TABLET PO PRN ×6 (00:21→23:28)
[2021-03-15 00:26] VITALS: BP 98/58
[2021-03-15] MEDS: ASPIRIN 81 MG TABLET EC PO SCH (06:03)
[2021-03-15 06:54] VITALS: BP 112/74
[2021-03-15] MEDS: VENLAFAXINE 75 MG CAP ER PO SCH (08:04)
[2021-03-15] MEDS: [UNRECOGNIZED DRUG - OTHER] INH SCH (08:19)
[2021-03-15] MEDS: TAMSULOSIN 0.4 MG CAP.ER.24H PO SCH ×2 (08:20→21:19)
[2021-03-15] MEDS: PANTOPRAZOLE GRAN. PKT 40 MG PO SCH ×2 (08:20→21:28)
[2021-03-15] MEDS: GABAPENTIN 400 MG CAPSULE PO SCH ×3 (08:20→21:20)
[2021-03-15] MEDS: SODIUM CHLORIDE 1 GM TABLET PO SCH ×2 (08:20→21:21)
[2021-03-15] MEDS: DOCUSATE 100 MG CAPSULE PO SCH ×2 (08:20→21:23)
[2021-03-15] MEDS: SENNA/DOCUSATE TABLET PO SCH ×2 (08:20→21:21)
[2021-03-15] MEDS: OXYBUTYNIN CHLORIDE 5 MG TABLET PO SCH ×2 (08:20→21:28)
[2021-03-15] MEDS: MELOXICAM 15 MG TABLET PO SCH (08:20)
[2021-03-15] MEDS: MESALAMINE 400 MG CAPSULE.DR PO SCH ×3 (08:21→21:24)
[2021-03-15] MEDS: POLYETHYLENE GLYCOL 17 GM PACKET NG SCH ×3 (08:22→21:25)
[2021-03-15] MEDS ORDERED: DOCU-131 PO (10:08)
[2021-03-15] MEDS ORDERED: SODI1TAB PO (10:08)
[2021-03-15] MEDS ORDERED: PANT40GR PO (10:08)
[2021-03-15] MEDS ORDERED: FENT1PAT74 TD (10:08)
[2021-03-15] MEDS ORDERED: OXYB5TAB10 PO (10:08)
[2021-03-15] MEDS ORDERED: TAMS-11 PO (10:08)
[2021-03-15] MEDS ORDERED: MESA400C2 PO (10:08)
[2021-03-15 13:09] VITALS: BP 107/63
[2021-03-15] MEDS: FENTANYL 12 MCG PATCH TD SCH (17:33)
[2021-03-15 19:24] VITALS: BP 100/69
[2021-03-15] MEDS: LIDODERM 5% PATCH TD SCH (19:33)
[2021-03-15] MEDS: ENOXAPARIN 40 MG/0.4 ML SQ SCH (21:19)
[2021-03-15] MEDS: NICOTINE 14MG/24 HR PATCH.TD24 TD SCH (21:26)
[2021-03-16 03:19] VITALS: BP 100/69
[2021-03-16] MEDS: ASPIRIN 81 MG TABLET EC PO SCH (05:26)
[2021-03-16] MEDS: OXYcodone IR 5MG TABLET PO PRN ×4 (05:27→19:58)
[2021-03-16 07:12] VITALS: BP 84/57
[2021-03-16 08:01] LABS: BASOPHILS % (AUTO) 1 % (0-1); EOSINOPHILS % (AUTO) 2 % (1-7); LYMPHOCYTES % (AUTO) 14 % (22-44); MEAN CORPUSCULAR HGB CONC 33.5 g/dL (32.4-35.8); MEAN PLATELET VOLUME 7.3 fL (7.4-10.4); MONOCYTES % (AUTO) 12 % (2-9); NEUTROPHILS % (AUTO) 71 % (42-75); PLATELET COUNT 130 x10^3/uL (130-400); RED BLOOD COUNT 3.03 x10^6/uL (3.82-5.3); RED CELL DISTRIBUTION WIDTH 14.7 % (9.6-15.2)
[2021-03-16 08:13] LABS: ANION GAP 5 mmol/L (5-15); CHLORIDE 99 mmol/L (98-107); CREATININE 0.35 mg/dL (0.55-1.02)
[2021-03-16] MEDS ORDERED: SODIUM CHLORIDE 0.9%, 500ML IVBOLUS ONE (08:30)
[2021-03-16] MEDS: SENNA/DOCUSATE TABLET PO SCH ×2 (09:47→19:59)
[2021-03-16] MEDS: DOCUSATE 100 MG CAPSULE PO SCH ×2 (09:47→19:58)
[2021-03-16] MEDS: POLYETHYLENE GLYCOL 17 GM PACKET NG SCH ×3 (09:47→19:57)
[2021-03-16] MEDS: PANTOPRAZOLE GRAN. PKT 40 MG PO SCH ×2 (09:47→20:21)
[2021-03-16] MEDS: GABAPENTIN 400 MG CAPSULE PO SCH ×3 (09:47→19:58)
[2021-03-16] MEDS: OXYBUTYNIN CHLORIDE 5 MG TABLET PO SCH ×2 (09:48→20:00)
[2021-03-16] MEDS: FLUCONAZOLE 200 MG TABLET PO SCH (09:48)
[2021-03-16] MEDS: [UNRECOGNIZED DRUG - OTHER] INH SCH (09:49)
[2021-03-16] MEDS: MELOXICAM 15 MG TABLET PO SCH (09:49)
[2021-03-16] MEDS: VENLAFAXINE 75 MG CAP ER PO SCH (09:50)
[2021-03-16] MEDS: TAMSULOSIN 0.4 MG CAP.ER.24H PO SCH ×2 (09:53→19:58)
[2021-03-16] MEDS: SODIUM CHLORIDE 1 GM TABLET PO SCH ×2 (09:53→19:58)
[2021-03-16] MEDS: SODIUM CHLORIDE 0.9% 1,000 ML IV SCH ×2 (11:07→20:00)
[2021-03-16] MEDS ORDERED: FLUC200T PO (12:10)
[2021-03-16 12:28] VITALS: BP 102/70
[2021-03-16 19:29] VITALS: BP 92/63
[2021-03-16] MEDS: ENOXAPARIN 40 MG/0.4 ML SQ SCH (19:56)
[2021-03-16] MEDS: LIDODERM 5% PATCH TD SCH (19:56)
[2021-03-16] MEDS: NICOTINE 14MG/24 HR PATCH.TD24 TD SCH (19:57)
[2021-03-17] MEDS: OXYcodone IR 5MG TABLET PO PRN ×5 (03:57→23:30)
[2021-03-17 04:00] VITALS: BP 92/63
[2021-03-17] MEDS: ASPIRIN 81 MG TABLET EC PO SCH (05:36)
[2021-03-17] MEDS: SODIUM CHLORIDE 0.9% 1,000 ML IV SCH (05:36)
[2021-03-17 08:13] VITALS: BP 92/52
[2021-03-17] MEDS: SENNA/DOCUSATE TABLET PO SCH ×2 (08:49→20:11)
[2021-03-17] MEDS: PANTOPRAZOLE GRAN. PKT 40 MG PO SCH ×2 (08:49→20:12)
[2021-03-17] MEDS: SODIUM CHLORIDE 1 GM TABLET PO SCH ×2 (08:49→20:11)
[2021-03-17] MEDS: DOCUSATE 100 MG CAPSULE PO SCH ×2 (08:49→20:10)
[2021-03-17] MEDS: TAMSULOSIN 0.4 MG CAP.ER.24H PO SCH ×2 (08:50→20:11)
[2021-03-17] MEDS: FLUCONAZOLE 200 MG TABLET PO SCH (08:50)
[2021-03-17] MEDS: MELOXICAM 15 MG TABLET PO SCH (08:50)
[2021-03-17] MEDS: OXYBUTYNIN CHLORIDE 5 MG TABLET PO SCH ×2 (08:50→20:10)
[2021-03-17] MEDS: GABAPENTIN 400 MG CAPSULE PO SCH ×3 (08:52→20:11)
[2021-03-17] MEDS: POLYETHYLENE GLYCOL 17 GM PACKET NG SCH ×3 (08:52→20:13)
[2021-03-17] MEDS: VENLAFAXINE 75 MG CAP ER PO SCH (08:53)
[2021-03-17] MEDS: [UNRECOGNIZED DRUG - OTHER] INH SCH (10:00)
[2021-03-17 12:25] VITALS: BP 110/73
[2021-03-17] MEDS: LIDODERM 5% PATCH TD SCH (17:36)
[2021-03-17 20:06] VITALS: BP 104/70
[2021-03-17] MEDS: NICOTINE 14MG/24 HR PATCH.TD24 TD SCH (20:11)
[2021-03-17] MEDS: ENOXAPARIN 40 MG/0.4 ML SQ SCH (20:12)
[2021-03-18 02:25] VITALS: BP 104/71
[2021-03-18] MEDS: OXYcodone IR 5MG TABLET PO PRN ×5 (05:18→21:58)
[2021-03-18] MEDS: ASPIRIN 81 MG TABLET EC PO SCH (06:35)
[2021-03-18] MEDS ORDERED: FUROSEMIDE 20 MG/2 ML IV ONE (08:00)
[2021-03-18] MEDS: VENLAFAXINE 75 MG CAP ER PO SCH (08:05)
[2021-03-18 08:09] VITALS: BP 101/50
[2021-03-18] MEDS: POLYETHYLENE GLYCOL 17 GM PACKET NG SCH ×3 (08:28→21:46)
[2021-03-18] MEDS: DOCUSATE 100 MG CAPSULE PO SCH ×2 (08:28→21:47)
[2021-03-18] MEDS: DOXYCYCLINE 100MG TABLET PO SCH ×2 (08:28→21:47)
[2021-03-18] MEDS: GABAPENTIN 400 MG CAPSULE PO SCH ×3 (08:28→21:47)
[2021-03-18] MEDS: AMOXICILLIN/CLAV 875-125MG TABLET PO SCH ×2 (08:28→21:47)
[2021-03-18] MEDS: SODIUM CHLORIDE 1 GM TABLET PO SCH ×2 (08:29→21:48)
[2021-03-18] MEDS: SENNA/DOCUSATE TABLET PO SCH ×2 (08:29→21:47)
[2021-03-18] MEDS: PANTOPRAZOLE GRAN. PKT 40 MG PO SCH ×2 (08:29→21:00)
[2021-03-18] MEDS: OXYBUTYNIN CHLORIDE 5 MG TABLET PO SCH ×2 (08:29→21:47)
[2021-03-18] MEDS: MELOXICAM 15 MG TABLET PO SCH (08:29)
[2021-03-18] MEDS: FLUCONAZOLE 200 MG TABLET PO SCH (08:29)
[2021-03-18] MEDS: TAMSULOSIN 0.4 MG CAP.ER.24H PO SCH ×2 (08:29→21:47)
[2021-03-18] MEDS: [UNRECOGNIZED DRUG - OTHER] INH SCH (08:31)
[2021-03-18 15:49] VITALS: BP 92/59
[2021-03-18 16:21] VITALS: BP 100/71
[2021-03-18] MEDS: FENTANYL 12 MCG PATCH TD SCH (17:55)
[2021-03-18 19:47] VITALS: BP 98/63
[2021-03-18] MEDS: LIDODERM 5% PATCH TD SCH (20:04)
[2021-03-18] MEDS: NICOTINE 14MG/24 HR PATCH.TD24 TD SCH (21:46)
[2021-03-18] MEDS: ENOXAPARIN 40 MG/0.4 ML SQ SCH (21:46)
[2021-03-19] VITALS: BP 90/67
[2021-03-19] MEDS: OXYcodone IR 5MG TABLET PO PRN ×5 (04:23→21:08)
[2021-03-19 05:24] LABS: BASOPHILS % (AUTO) 1 % (0-1); EOSINOPHILS % (AUTO) 4 % (1-7); LYMPHOCYTES % (AUTO) 18 % (22-44); MEAN CORPUSCULAR HEMOGLOBIN 32.5 pg (27.0-34.8); MEAN CORPUSCULAR HGB CONC 33.9 g/dL (32.4-35.8); MEAN PLATELET VOLUME 7.6 fL (7.4-10.4); MONOCYTES % (AUTO) 17 % (2-9); NEUTROPHILS % (AUTO) 60 % (42-75); PLATELET COUNT 206 x10^3/uL (130-400); RED BLOOD COUNT 2.73 x10^6/uL (3.82-5.3); RED CELL DISTRIBUTION WIDTH 14.8 % (9.6-15.2)
[2021-03-19] MEDS: ASPIRIN 81 MG TABLET EC PO SCH (05:24)
[2021-03-19 05:27] LABS: ALBUMIN 1.9 g/dL (3.4-5.0); ANION GAP 1 mmol/L (5-15); CALCIUM 8.1 mg/dL (8.5-10.1); CHLORIDE 103 mmol/L (98-107)
[2021-03-19 05:29] LABS: ALANINE AMINOTRANSFERASE 10 U/L (12-78); ALKALINE PHOSPHATASE 100 U/L (45-117); BILIRUBIN,TOTAL 0.3 mg/dL (0.2-1.0); TOTAL PROTEIN 4.9 g/dL (6.4-8.2)
[2021-03-19 07:16] VITALS: BP 94/59
[2021-03-19] MEDS: POLYETHYLENE GLYCOL 17 GM PACKET NG SCH ×3 (08:39→21:08)
[2021-03-19] MEDS: MELOXICAM 15 MG TABLET PO SCH (08:40)
[2021-03-19] MEDS: AMOXICILLIN/CLAV 875-125MG TABLET PO SCH ×2 (08:40→21:03)
[2021-03-19] MEDS: SENNA/DOCUSATE TABLET PO SCH ×2 (08:41→21:06)
[2021-03-19] MEDS: DOXYCYCLINE 100MG TABLET PO SCH ×2 (08:41→21:04)
[2021-03-19] MEDS: TAMSULOSIN 0.4 MG CAP.ER.24H PO SCH ×2 (08:41→21:07)
[2021-03-19] MEDS: OXYBUTYNIN CHLORIDE 5 MG TABLET PO SCH ×2 (08:41→21:07)
[2021-03-19] MEDS: DOCUSATE 100 MG CAPSULE PO SCH ×2 (08:42→21:07)
[2021-03-19] MEDS: FLUCONAZOLE 200 MG TABLET PO SCH (08:42)
[2021-03-19] MEDS: PANTOPRAZOLE GRAN. PKT 40 MG PO SCH ×2 (08:43→21:08)
[2021-03-19] MEDS: SODIUM CHLORIDE 1 GM TABLET PO SCH ×2 (08:43→21:05)
[2021-03-19] MEDS: GABAPENTIN 400 MG CAPSULE PO SCH ×3 (08:43→21:07)
[2021-03-19] MEDS: [UNRECOGNIZED DRUG - OTHER] INH SCH (08:51)
[2021-03-19] MEDS: VENLAFAXINE 75 MG CAP ER PO SCH (08:51)
[2021-03-19 12:33] VITALS: BP 106/70
[2021-03-19] MEDS: LIDODERM 5% PATCH TD SCH (17:07)
[2021-03-19] MEDS: BISACODYL 10 MG SUPP PR PRN (17:07)
[2021-03-19 18:55] VITALS: BP 104/70
[2021-03-19] MEDS: NICOTINE 14MG/24 HR PATCH.TD24 TD SCH (21:12)
[2021-03-19] MEDS: ENOXAPARIN 40 MG/0.4 ML SQ SCH (21:12)
[2021-03-20 00:57] VITALS: BP 98/67
[2021-03-20] MEDS: OXYcodone IR 5MG TABLET PO PRN ×5 (01:01→20:01)
[2021-03-20] MEDS: ASPIRIN 81 MG TABLET EC PO SCH (05:52)
[2021-03-20 07:37] VITALS: BP 124/81
[2021-03-20] MEDS: VENLAFAXINE 75 MG CAP ER PO SCH ×2 (09:00→09:22)
[2021-03-20] MEDS: POLYETHYLENE GLYCOL 17 GM PACKET NG SCH ×3 (09:21→20:37)
[2021-03-20] MEDS: DOXYCYCLINE 100MG TABLET PO SCH ×2 (09:22→20:01)
[2021-03-20] MEDS: SODIUM CHLORIDE 1 GM TABLET PO SCH (09:22)
[2021-03-20] MEDS: SENNA/DOCUSATE TABLET PO SCH ×2 (09:22→20:37)
[2021-03-20] MEDS: GABAPENTIN 400 MG CAPSULE PO SCH ×3 (09:22→20:00)
[2021-03-20] MEDS: DOCUSATE 100 MG CAPSULE PO SCH ×2 (09:23→20:37)
[2021-03-20] MEDS: TAMSULOSIN 0.4 MG CAP.ER.24H PO SCH ×2 (09:23→20:01)
[2021-03-20] MEDS: AMOXICILLIN/CLAV 875-125MG TABLET PO SCH ×2 (09:23→20:01)
[2021-03-20] MEDS: OXYBUTYNIN CHLORIDE 5 MG TABLET PO SCH ×2 (09:24→20:01)
[2021-03-20] MEDS: PANTOPRAZOLE GRAN. PKT 40 MG PO SCH ×2 (09:24→20:02)
[2021-03-20] MEDS: MELOXICAM 15 MG TABLET PO SCH (09:24)
[2021-03-20] MEDS: FLUCONAZOLE 200 MG TABLET PO SCH (09:24)
[2021-03-20] MEDS: [UNRECOGNIZED DRUG - OTHER] INH SCH (09:41)
[2021-03-20 12:15] VITALS: BP 127/93
[2021-03-20] MEDS: LIDODERM 5% PATCH TD SCH (15:45)
[2021-03-20] MEDS: NICOTINE 14MG/24 HR PATCH.TD24 TD SCH (20:04)
[2021-03-20] MEDS: ENOXAPARIN 40 MG/0.4 ML SQ SCH (20:04)
[2021-03-20] MEDS: SODIUM CHLORIDE FLUSH 10ML SYR IVF SCH (20:08)
[2021-03-20 20:55] VITALS: BP 81/47
[2021-03-20 23:05] VITALS: BP 91/52
[2021-03-21 01:18] VITALS: BP 86/52
[2021-03-21] MEDS: OXYcodone IR 5MG TABLET PO PRN ×6 (01:32→22:30)
[2021-03-21 05:19] VITALS: BP 99/64
[2021-03-21] MEDS: ASPIRIN 81 MG TABLET EC PO SCH (05:28)
[2021-03-21 05:37] LABS: ANION GAP 2 mmol/L (5-15); CHLORIDE 102 mmol/L (98-107)
[2021-03-21 05:38] LABS: CREATININE 0.37 mg/dL (0.55-1.02)
[2021-03-21 06:42] VITALS: BP 97/57
[2021-03-21] MEDS: PANTOPRAZOLE GRAN. PKT 40 MG PO SCH ×2 (08:39→21:38)
[2021-03-21] MEDS: FLUCONAZOLE 200 MG TABLET PO SCH (08:39)
[2021-03-21] MEDS: AMOXICILLIN/CLAV 875-125MG TABLET PO SCH ×2 (08:39→21:39)
[2021-03-21] MEDS: SENNA/DOCUSATE TABLET PO SCH ×2 (08:40→21:00)
[2021-03-21] MEDS: MELOXICAM 15 MG TABLET PO SCH (08:40)
[2021-03-21] MEDS: OXYBUTYNIN CHLORIDE 5 MG TABLET PO SCH ×2 (08:40→21:39)
[2021-03-21] MEDS: GABAPENTIN 400 MG CAPSULE PO SCH ×3 (08:40→21:38)
[2021-03-21] MEDS: VENLAFAXINE 75 MG CAP ER PO SCH ×2 (08:40→08:45)
[2021-03-21] MEDS: DOCUSATE 100 MG CAPSULE PO SCH ×2 (08:40→21:00)
[2021-03-21] MEDS: POLYETHYLENE GLYCOL 17 GM PACKET NG SCH ×3 (08:40→21:00)
[2021-03-21] MEDS: TAMSULOSIN 0.4 MG CAP.ER.24H PO SCH ×2 (08:40→21:39)
[2021-03-21] MEDS: DOXYCYCLINE 100MG TABLET PO SCH ×2 (08:40→21:39)
[2021-03-21] MEDS: [UNRECOGNIZED DRUG - OTHER] INH SCH (08:41)
[2021-03-21] MEDS: SODIUM CHLORIDE FLUSH 10ML SYR IVF SCH ×2 (08:42→21:38)
[2021-03-21 13:25] VITALS: BP 95/64
[2021-03-21] MEDS: LIDODERM 5% PATCH TD SCH (17:30)
[2021-03-21] MEDS: FENTANYL 12 MCG PATCH TD SCH (17:32)
[2021-03-21 19:09] VITALS: BP 94/61
[2021-03-21] MEDS: ENOXAPARIN 40 MG/0.4 ML SQ SCH (21:37)
[2021-03-21] MEDS: NICOTINE 14MG/24 HR PATCH.TD24 TD SCH (21:38)
[2021-03-22 00:17] VITALS: BP 90/64
[2021-03-22 02:34] VITALS: BP 107/71
[2021-03-22] MEDS: OXYcodone IR 5MG TABLET PO PRN ×4 (02:39→15:25)
[2021-03-22] MEDS: ASPIRIN 81 MG TABLET EC PO SCH (05:59)
[2021-03-22 06:27] VITALS: BP 103/71
[2021-03-22] MEDS: POLYETHYLENE GLYCOL 17 GM PACKET NG SCH ×2 (08:14→15:26)
[2021-03-22] MEDS: VENLAFAXINE 75 MG CAP ER PO SCH (08:14)
[2021-03-22] MEDS: SENNA/DOCUSATE TABLET PO SCH (08:14)
[2021-03-22] MEDS: DOCUSATE 100 MG CAPSULE PO SCH (08:14)
[2021-03-22] MEDS: OXYBUTYNIN CHLORIDE 5 MG TABLET PO SCH (08:35)
[2021-03-22] MEDS: GABAPENTIN 400 MG CAPSULE PO SCH ×2 (08:35→16:29)
[2021-03-22] MEDS: TAMSULOSIN 0.4 MG CAP.ER.24H PO SCH (08:35)
[2021-03-22] MEDS: AMOXICILLIN/CLAV 875-125MG TABLET PO SCH (08:35)
[2021-03-22] MEDS: FLUCONAZOLE 200 MG TABLET PO SCH (08:35)
[2021-03-22] MEDS: PANTOPRAZOLE GRAN. PKT 40 MG PO SCH (08:35)
[2021-03-22] MEDS: MELOXICAM 15 MG TABLET PO SCH (08:35)
[2021-03-22] MEDS: DOXYCYCLINE 100MG TABLET PO SCH (08:35)
[2021-03-22] MEDS: [UNRECOGNIZED DRUG - OTHER] INH SCH (08:39)
[2021-03-22] MEDS: SODIUM CHLORIDE FLUSH 10ML SYR IVF SCH (08:40)
[2021-03-22 12:39] VITALS: BP 112/76
[2021-03-22] MEDS: LIDODERM 5% PATCH TD SCH (16:29)
[2021-03-24] MEDS ORDERED: OMEP40CA8 PO (12:34)
[2021-03-24] MEDS ORDERED: PRIM250T34 PO (12:34)
[2021-03-24] MEDS ORDERED: LORA-445 PO (12:34)
== END 2021-03-22 17:09 | DRG 604 ==
LOC: ED 14:52 → EDIP 18:41 → 4NW 20:08
PROVIDERS: ADMIT Internal Medicine; ATTEND Hospitalist
PROC: 0T9B70Z Drainage of Bladder with Drainage Device, Via Natural or Artificial Opening (ICD-10-PCS; principal; 2021-03-09)
PROC: 0DB68ZX Excision of Stomach, Via Natural or Artificial Opening Endoscopic, Diagnostic (ICD-10-PCS; 2021-03-13)
PROC: 0DBE8ZX Excision of Large Intestine, Via Natural or Artificial Opening Endoscopic, Diagnostic (ICD-10-PCS; 2021-03-13)
PROC: 0DB58ZX Excision of Esophagus, Via Natural or Artificial Opening Endoscopic, Diagnostic (ICD-10-PCS; 2021-03-13 10:00)
DX: S30.0XXA Contusion of lower back and pelvis, initial encounter (principal); E43 Unspecified severe protein-calorie malnutrition; F11.20 Opioid dependence, uncomplicated; E87.1 Hypo-osmolality and hyponatremia; B37.81 Candidal esophagitis; J96.11 Chronic respiratory failure with hypoxia; M54.5 Low back pain; Z99.81 Dependence on supplemental oxygen; D25.1 Intramural leiomyoma of uterus; K29.60 Other gastritis without bleeding; D64.9 Anemia, unspecified; E83.42 Hypomagnesemia; F17.210 Nicotine dependence, cigarettes, uncomplicated; F41.1 Generalized anxiety disorder; G89.29 Other chronic pain; I10 Essential (primary) hypertension; J43.9 Emphysema, unspecified; I25.10 Atherosclerotic heart disease of native coronary artery without angina pectoris; K59.03 Drug induced constipation; K63.89 Other specified diseases of intestine; M53.3 Sacrococcygeal disorders, not elsewhere classified; R33.8 Other retention of urine; T40.605A Adverse effect of unspecified narcotics, initial encounter; W01.0XXA Fall on same level from slipping, tripping and stumbling without subsequent striking against object, initial encounter; Z85.118 Personal history of other malignant neoplasm of bronchus and lung; Z92.21 Personal history of antineoplastic chemotherapy; K52.9 Noninfective gastroenteritis and colitis, unspecified; Y93.89 Activity, other specified; Y92.89 Other specified places as the place of occurrence of the external cause; K57.30 Diverticulosis of large intestine without perforation or abscess without bleeding; Z20.822 Contact with and (suspected) exposure to COVID-19; Z88.2 Allergy status to sulfonamides; Z88.8 Allergy status to other drugs, medicaments and biological substances; Z91.041 Radiographic dye allergy status; Z91.013 Allergy to seafood
CPT/HCPCS: 36415; 71045; 72110; 72158; 72195; 80048; 80053; 81001; 83735; 83993; 84100; 85025; 85651; 86140; 87635; 88305; 93005; 96372; 99285; G0378; J1170; J1650; J1885; J2405; J2704; J3010; J3480; A9575; J1940; J2060; J2270; J3475; J7030; J7040; J7121